=== PATIENT | male | born 1965 | race Caucasian/White ===

== ENCOUNTER 2018-06-02 06:06 | Day surgery (SDC) | payer OTHER ==
[~2018-06-02] VITALS: Ht 154.9 cm; Wt 63.5 kg
[2018-06-02] MEDS ORDERED: METF850T PO (07:02)
[2018-06-02] MEDS ORDERED: LIDOCAINE 2% 100 MG/5 ML UJET TP ONE (07:45)
[2018-06-02] MEDS ORDERED: KETOROLAC 30 MG/ML VIAL ONE (07:45)
== END 2018-06-02 09:10 | disposition home or self-care (01) ==
LOC: MDS 06:06 → MMU 06:06 → MDS 09:10
PROVIDERS: ATTEND Internal Medicine Gastroenterology
DX: Z12.11 Encounter for screening for malignant neoplasm of colon (principal); D12.7 Benign neoplasm of rectosigmoid junction; K57.30 Diverticulosis of large intestine without perforation or abscess without bleeding; E11.9 Type 2 diabetes mellitus without complications; M19.90 Unspecified osteoarthritis, unspecified site; E66.3 Overweight; Z68.25 Body mass index [BMI] 25.0-25.9, adult; Z72.89 Other problems related to lifestyle; Z79.84 Long term (current) use of oral hypoglycemic drugs; Z79.899 Other long term (current) drug therapy
CPT/HCPCS: 45385; 82948; J1885